=== PATIENT | female | born 1945 | race Caucasian/White ===

== ENCOUNTER 2024-12-27 11:00 | Outpatient (RCR) | payer MEDICARE, SELFPAY ==
--- NOTE | 2024-10-15 16:03 | PTOPEVAL1 ---
Assessment and note entered by Cammie Giles, PT Evaluation Information Assessment Status Evaluation Diagnosis BPPV unspecified ICD-10 Condition Codes (PT) BPPV right ear H81.11 Onset ~20 years Subjective Information Pt reports has had vertigo for over 20 years but just got tired of it. Pt reports is better than it used to be. knows what she can and can't do to bring it on, and how to manage it. Reports two things; 1) cannot drive her car with her head leaning against the head rest because the vibration would set it off. She's had to pull off the road 2-3 minutes to let the symptoms subside. 2) Taking a shower, the water hitting top of her head will set off her sensation. Thinks is related to sensation of having something hitting on her head Has to be careful turning over in bed, and wiht the dentist chair has to recline slowly due to dizziness. Laying down to sitting up is not as bad, does wait a minute to get her bearings before standing but doensn't have the sensation of room spinning. Bending forward causes dizziness Reported Pain Level Pain Score 0: Self Report Assessment PT Clinical Summary Pt presents with chronic history of vertigo which she has modified her lifestyle to prevent and manage symptoms. [place]-Hallpike R had greatest symptoms though showed what appeared to be left upward torsional nystagmus. Left sided testing and roll testing satish show mild horizontal nystagmus with mild symptoms though unable to assess ageotropic versus geotropic pattern. Performed R sided Yulissa today with pt educated on 24 hour precautions. Will continue to monitor nystagmus and symptoms as progresses. Pt requires therapy at this time to assist in occupational health nursing director, address balance deficits, and improve functional mobility without symptoms. Plan of Care Interventions Neuro Re-education Other Interventions BLOCK TRIMMER PT Services Indicated Yes Treatment Frequency and 1-3x weekly x 10 visits Duration These treatments will address the objective and functional deficits as defined above. The patient will be advanced safely and appropriately in order for the patient to progress towards his/her prior level of function. Additional exercises will be introduced and as well as a comprehensive home exercise program upon discharge, if needed, ?to ensure carryover of functional gains achieved in the clinic. This treatment plan has been reviewed and agreement upon by the patient.
--- NOTE | 2024-10-15 16:03 | OPREHPOC ---
Outpatient Therapy Plan of Care This is a Multidisciplinary Plan of Care that may contain components documented by all disciplines (PT, OT, and ST.) PT Problem 1 PT Problem #1 Knowledge Deficit PT Goal 1 Goal / Goal Update Pt will be independent in HEP Pt will verbalize understanding of diagnosis and prognosis Target Visit 5 PT Problem 2 PT Problem #2 Impaired Sensation PT Goal 1 Goal / Goal Update Pt will report ability to tolerate showers on top of her head without symptoms Target Visit 5 PT Goal 2 Goal / Goal Update Pt will tolerate Scott-Hallpike testing bilat without symptoms Target Visit 10 PT Problem 3 PT Problem #3 Impaired Balance PT Goal 1 Goal / Goal Update Pt will demonstrate tandem stance with right foot forward and eyes open for 30 seconds Target Visit 5 PT Goal 2 Goal / Goal Update Pt will demonstrate balance for at least 5 seconds with R/L tandem and eyes closed to improve overall proprioception Target Visit 10
--- NOTE | 2024-11-14 13:27 | PTOPPROG ---
Assessment and note entered by Cammie Giles, PT Evaluation Information Assessment Status Progress Diagnosis BPPV unspecified ICD-10 Condition Codes (PT) Dizziness and Giddiness R42,BPPV H81.12 Onset ~20 years Subjective Information Pt reports yesterday was one of the worst days she has had in a long time. Any movement would set her off with a little blip. movements had to be slow and wasn't able to do much yesterday. Modified activities heavily but when woke up this morning was fine. Was back to where it had been prior to yesterday, could get out of bed and not feel dizzy. Still took her time getting up. Was able to stand under the water for her shower without being dizzy. Has not tried to drive with her head against the head rest. Gets sleepy if drives long distances. Has been able to sleep ad move around in bed and even lay on left side last night with less issues. Assessment PT Clinical Summary Pt has attended therapy consistently for Vertigo. We have been treating left sided canalithiasis with improving symptoms overall. Dizziness Handicap score reduced from 34% to 16% perceived handicap, her standing balance scores have also improved. She continues to have symptoms with Yulissa maneuver and had a flare up of symptoms yesterday that appears to have resolved. Pt will benefit from cont therapy to continue canalith repositioning and continue patient improvement. Plan of Care Interventions Neuro Re-education,Therapeutic Activities, Therapeutic Exercise Other Interventions HEAD BUTLER PT Services Indicated Yes Treatment Frequency and 1-2x weekly x 10 visits Duration These treatments will address the objective and functional deficits as defined above. The patient will be advanced safely and appropriately in order for the patient to progress towards his/her prior level of function. Additional exercises will be introduced and as well as a comprehensive home exercise program upon discharge, if needed, ?to ensure carryover of functional gains achieved in the clinic. This treatment plan has been reviewed and agreement upon by the patient.
--- NOTE | 2024-11-14 13:28 | OPREHPOC ---
Outpatient Therapy Plan of Care This is a Multidisciplinary Plan of Care that may contain components documented by all disciplines (PT, OT, and ST.) PT Problem 1 PT Problem #1 Knowledge Deficit PT Goal 1 Goal / Goal Update Pt will be independent in HEP Pt will verbalize understanding of diagnosis and prognosis Target Visit 5 Progress Met PT Problem 2 PT Problem #2 Impaired Sensation PT Goal 1 Goal / Goal Update Pt will report ability to tolerate showers on top of her head without symptoms Target Visit 5 Progress Met PT Goal 2 Goal / Goal Update Pt will tolerate Scott-Hallpike testing bilat without symptoms Target Visit 20 PT Problem 3 PT Problem #3 Impaired Balance PT Goal 1 Goal / Goal Update Pt will demonstrate tandem stance with right foot forward and eyes open for 30 seconds Target Visit 5 Progress Met PT Goal 2 Goal / Goal Update Pt will demonstrate balance for at least 5 seconds with R/L tandem and eyes closed to improve overall proprioception - met for right, improved for left (11/14/2024) Target Visit 10 Progress Partially Met
--- NOTE | 2024-12-28 16:43 | PTOPDC ---
Assessment and note entered by Cammie Giles, PT Evaluation Information Assessment Status Discharge Diagnosis BPPV unspecified ICD-10 Condition Codes (PT) Dizziness and Giddiness R42,BPPV H81.12 Onset ~20 years Subjective Information Reports this morning just gotten up from bed, looking down reading looked up to tv and had a small spin just for a sec then resolved. Bending over is resolved, still doesn't lean head against car head rest for other reasons. Looking up and down, and with quick up and down movements still bothersome sometimes. Side to side is not an issue any more Pt reports feeling 90% improved overall. Reported Pain Level Pain Score 0: Self Report Assessment PT Clinical Summary Pt reports feeling 90% improved overall. Is able to lay on either side in bed, roll over, turn to look over her shoulder with driving, and multiple other activities without increased dizziness. Her testing was all WNL accept slight continued dizziness with L Scott-Hallpike. Pt has been educated on findings, continued balance training, and on when to return to therapy in the future if is necessary. Thus patient is being discharged for completion of POC. Plan of Care PT Services Indicated No
== END 2025-01-07 11:47 | disposition home or self-care (01) ==
LOC: ANHHIPT 11:00
PROVIDERS: PCP Physician Assistant Medical; Visit Provider Physician Assistant Medical
DX: H81.13 Benign paroxysmal vertigo, bilateral (principal); I10 Essential (primary) hypertension; M23.52 Chronic instability of knee, left knee; M47.816 Spondylosis without myelopathy or radiculopathy, lumbar region; M25.562 Pain in left knee; M25.551 Pain in right hip; M25.552 Pain in left hip; E78.5 Hyperlipidemia, unspecified
CPT/HCPCS: 95992; 97110; 97112; 97161; 97750